=== PATIENT | male | born 1950 | race Caucasian/White ===

== ENCOUNTER 2017-10-29 10:19 | Day surgery (SDC) | payer MEDICAID ==
[2017-10-24 13:23] VITALS: BMI 29.0
[2017-10-29] MEDS ORDERED: Propofol 10 mg/ml Inj (20 ML) ONE (11:33)
[2017-10-29] MEDS ORDERED: Sodium Chloride 0.9% 1,000 ML IV SCH (12:30)
[2017-10-29 13:36] VITALS: BP 130/78; PULSE 80; RESP 15; TEMP 97.8; O2SAT 98
== END 2017-10-29 17:30 | disposition home or self-care (01) ==
LOC: ENDO 10:19
PROVIDERS: ATTEND Internal Medicine
DX: Z12.11 Encounter for screening for malignant neoplasm of colon (principal); D12.5 Benign neoplasm of sigmoid colon; D12.3 Benign neoplasm of transverse colon; K63.5 Polyp of colon; K64.8 Other hemorrhoids
CPT/HCPCS: 45380; 45385; 88305; J2001; J2704; J7030; J7040